=== PATIENT | female | born 1995 | race Caucasian/White ===

== ENCOUNTER → 2017-08-31 11:17 | Emergency (ER) | payer BC, OTHER ==
[~2017-08-31 11:17] MED LIST: HYDROcodone/ACETAMIN 5-325 MG* 1 TAB PO ONE; Ketorolac INJ* 30 MG/ML 1 ML VIAL IM ONE
[2017-08-31 12:27] VITALS: BP 140/68
--- NOTE | 2017-08-31 14:08 | UC ---
Back Pain HPI - HPI Summary HPI Summary: 22 yo female with LBP x 5 days worse today L lower back >R lower back no bowel/bladder dysfunction no pain/numbness down legs - History of Current Complaint Chief Complaint: UCBackPain Stated Complaint: BACK INJ Time Seen by Provider: 08/31/17 12:30 Hx Obtained From: Patient Hx Last Menstrual Period: off Depo 04/2017, no period yet Onset/Duration: Sudden Onset, Lasting Days Timing: Constant Severity Initially: Mild Severity Currently: Severe Pain Intensity: 10 Pain Scale Used: 0-10 Numeric Back Pain: Is Diffuse Character: Aching, Throbbing, Spasmodic Aggravating Factor(s): Movement Alleviating Factor(s): OTC Meds Associated Signs And Symptoms: Positive: Negative - Allergies/Home Medications Allergies/Adverse Reactions: Allergies Allergy/AdvReac Type Severity Reaction Status Date / Time MS Amoxicillin [Amoxicillin] Allergy Rash Verified 05/12/16 19:45 MS Ciprofloxacin Allergy Rash Verified 05/12/16 19:45 [Ciprofloxacin] PMH/Surg Hx/FS Hx/Imm Hx Previously Healthy: Yes - Surgical History Surgical History: None - Family History Known Family History: Positive: Hypertension Negative: Renal Disease - Social History Alcohol Use: Occasionally Substance Use Type: None Smoking Status (MU): Never Smoked Tobacco Review of Systems Constitutional: Negative Skin: Negative Eyes: Negative ENT: Negative Respiratory: Negative Cardiovascular: Negative Gastrointestinal: Negative Genitourinary: Negative Motor: Negative Neurovascular: Negative Musculoskeletal: Myalgia Neurological: Negative Psychological: Negative Is Patient Immunocompromised?: No All Other Systems Reviewed And Are Negative: Yes Physical Exam Triage Information Reviewed: Yes Appearance: Well-Appearing, No Pain Distress, Well-Nourished Vital Signs: Initial Vital Signs Temp 98.8 F 08/31/17 12:20 Pulse 102 08/31/17 12:20 Resp 17 08/31/17 12:20 BP 140/68 08/31/17 12:20 Pulse Ox 100 08/31/17 12:20 Vital Signs Reviewed: Yes Eyes: Positive: Conjunctiva Clear ENT: Positive: Hearing grossly normal. Negative: Nasal congestion, Nasal drainage, Muffled voice, Hoarse voice Neck: Positive: Supple, Nontender Respiratory: Positive: Lungs clear, Normal breath sounds, No respiratory distress, No accessory muscle use Cardiovascular: Positive: RRR, No Murmur Neurological Exam: Normal Neurological: Positive: Alert Psychological Exam: Normal Skin Exam: Normal Re-Evaluation - Re-Evaluation Second Eval Re-Evaluation Time: 13:50 Change: Unchanged Back Pain Course/Dx - Differential Dx/Diagnosis Provider Diagnoses: acute lumbar strain Discharge - Sign-Out/Discharge Documenting (check all that apply): Discharge - Discharge Plan Condition: Stable Disposition: HOME Prescriptions: Cyclobenzaprine TAB* [Flexeril TAB*] 10 mg PO TID PRN #15 tab PRN Reason: Spasms HYDROcodone/ACETAMIN 5-325 MG* [[place] 5-325 TAB*] 1 tab PO Q4H PRN #6 tab MDD 2 PRN Reason: Pain Patient Education Materials: Low Back Strain (ED) Forms: *Work Release Referrals: Aurea Kathleen PA [Primary Care Provider] - As Soon As Possible Additional Instructions: PT consult ibuprofen 200mg 3 pill 4x day with food for pain - Billing Disposition and Condition Condition: STABLE Disposition: HOME Images Front/Back of Body, Lg ([place]): 1 - tender
== END | disposition home or self-care (01) ==
LOC: UCCORT 11:17
DX: S39.012A Strain of muscle, fascia and tendon of lower back, initial encounter (principal); X58.XXXA Exposure to other specified factors, initial encounter; Y92.9 Unspecified place or not applicable; Z88.3 Allergy status to other anti-infective agents
CPT/HCPCS: 96372; 99212; G0463; J1885